=== PATIENT | male | born 1950 | race Asian ===

== ENCOUNTER 2017-06-17 22:46 | Emergency (ER) | payer BC ==
[~2017-06-17] VITALS: Ht 175.3 cm; Wt 79.4 kg
[~2017-06-17 22:46] MED LIST: TAMS0.4C PO
[2017-06-17] MEDS ORDERED: ASA LOW STR81 MG OR (23:00)
[2017-06-18 00:01] LABS: PLATELET COUNT 181 K/uL (142-355)
[2017-06-18 00:10] LABS: POTASSIUM 3.1 mmol/L (3.6-5.2); SODIUM 140 mmol/L (136-145)
[2017-06-18 01:09] VITALS: BP 169/75; TEMP 97.8
== END 2017-06-18 01:10 | disposition home or self-care (01) ==
LOC: ED 22:46
PROVIDERS: Specialist
PROC: 0T9B70Z Drainage of Bladder with Drainage Device, Via Natural or Artificial Opening (ICD-10-PCS; principal; 2017-06-17)
DX: N32.89 Other specified disorders of bladder (principal); R33.9 Retention of urine, unspecified
CPT/HCPCS: 36415; 51702; 74022; 80048; 82150; 83690; 85027; 99283

== ENCOUNTER 2019-03-13 05:09 | Emergency (ER) | payer OTHER ==
[~2019-03-13] VITALS: Ht 175.3 cm; Wt 77.6 kg
[~2019-03-13 05:09] MED LIST changes: +ASA LOW STR81 MG OR
[2019-03-13 05:21] VITALS: TEMP 97.5
[2019-03-13 07:07] VITALS: BP 154/73
== END 2019-03-13 07:07 | disposition home or self-care (01) ==
LOC: ED 05:09
DX: N40.1 Benign prostatic hyperplasia with lower urinary tract symptoms (principal); R10.30 Lower abdominal pain, unspecified; R33.8 Other retention of urine
CPT/HCPCS: 51702; 81000; 99283; 99284

== ENCOUNTER 2019-03-25 03:30 | Emergency (ER) | payer OTHER ==
[~2019-03-25] VITALS: Ht 175.3 cm; Wt 77.6 kg
[2019-03-25 05:06] VITALS: BP 178/88
== END 2019-03-25 05:10 | disposition home or self-care (01) ==
LOC: ED 03:30 → EDBD 03:30 → ED 05:10
PROC: 0T9B70Z Drainage of Bladder with Drainage Device, Via Natural or Artificial Opening (ICD-10-PCS; principal; 2019-03-25)
DX: N40.1 Benign prostatic hyperplasia with lower urinary tract symptoms (principal); N13.8 Other obstructive and reflux uropathy
CPT/HCPCS: 51702; 99282

== ENCOUNTER 2020-04-17 02:10 | Emergency (ER) | payer OTHER ==
[~2020-04-17] VITALS: Ht 175.3 cm; Wt 74.8 kg
[2020-04-17 03:30] VITALS: BP 161/71; TEMP 98.7
== END 2020-04-17 03:30 | disposition home or self-care (01) ==
LOC: ED 02:10
PROC: 0T9B70Z Drainage of Bladder with Drainage Device, Via Natural or Artificial Opening (ICD-10-PCS; principal; 2020-04-17)
DX: N40.1 Benign prostatic hyperplasia with lower urinary tract symptoms (principal); R33.8 Other retention of urine
CPT/HCPCS: 51702; 81000; 99283

== ENCOUNTER 2020-09-18 08:43 | Emergency (ER) | payer OTHER ==
[~2020-09-18] VITALS: Ht 175.3 cm; Wt 74.8 kg
[2020-09-18 08:50] VITALS: TEMP 97.8
[2020-09-18 09:33] LABS: PLATELET COUNT 186 K/uL (142-355)
[2020-09-18 09:52] LABS: POTASSIUM 4.1 mmol/L (3.6-5.2)
[2020-09-18 10:47] VITALS: BP 156/78
== END 2020-09-18 10:49 | disposition home or self-care (01) ==
LOC: ED 08:43
PROVIDERS: Family Medicine
PROC: 0T9B70Z Drainage of Bladder with Drainage Device, Via Natural or Artificial Opening (ICD-10-PCS; principal; 2020-09-18)
DX: N40.1 Benign prostatic hyperplasia with lower urinary tract symptoms (principal); R33.8 Other retention of urine
CPT/HCPCS: 51702; 80053; 81000; 85027; 99282; 99283

== ENCOUNTER 2020-09-18 23:28 | Emergency (ER) | payer OTHER ==
[~2020-09-18] VITALS: Ht 175.3 cm; Wt 81.6 kg
[2020-09-19 01:26] VITALS: BP 161/85; TEMP 98
== END 2020-09-19 01:27 | disposition home or self-care (01) ==
LOC: ED 23:28
PROC: 0T9B70Z Drainage of Bladder with Drainage Device, Via Natural or Artificial Opening (ICD-10-PCS; principal; 2020-09-18)
DX: N40.1 Benign prostatic hyperplasia with lower urinary tract symptoms (principal); R33.8 Other retention of urine
CPT/HCPCS: 51702; 99282

== ENCOUNTER 2020-12-16 03:47 | Emergency (ER) | payer OTHER ==
[~2020-12-16] VITALS: Ht 175.3 cm; Wt 81.6 kg
[2020-12-16 07:05] VITALS: BP 155/80; TEMP 98.4
== END 2020-12-16 07:05 | disposition home or self-care (01) ==
LOC: ED 03:47
PROC: 0T9B70Z Drainage of Bladder with Drainage Device, Via Natural or Artificial Opening (ICD-10-PCS; principal; 2020-12-16)
DX: R33.8 Other retention of urine (principal); N40.1 Benign prostatic hyperplasia with lower urinary tract symptoms
CPT/HCPCS: 51702; 81000; 99283

== ENCOUNTER 2021-02-10 06:45 | Emergency (ER) | payer OTHER | END 2021-02-10 08:15 | disposition home or self-care (01) | LOC: ED 06:45 | PROC: 0T9B70Z Drainage of Bladder with Drainage Device, Via Natural or Artificial Opening (ICD-10-PCS; principal; 2021-02-10) | DX: N40.1 Benign prostatic hyperplasia with lower urinary tract symptoms (principal); R33.8 Other retention of urine; I10 Essential (primary) hypertension | CPT/HCPCS: 51702; 81000; 99283 ==

== ENCOUNTER 2021-02-23 05:44 | Emergency (ER) | payer OTHER ==
[~2021-02-23] VITALS: Ht 175.3 cm; Wt 81.6 kg
[2021-02-23 05:50] VITALS: TEMP 98.2
[2021-02-23 07:35] VITALS: BP 164/72
== END 2021-02-23 07:35 | disposition home or self-care (01) ==
LOC: ED 05:44
PROC: 0T9B70Z Drainage of Bladder with Drainage Device, Via Natural or Artificial Opening (ICD-10-PCS; principal; 2021-02-23)
DX: N40.1 Benign prostatic hyperplasia with lower urinary tract symptoms (principal); R33.8 Other retention of urine
CPT/HCPCS: 51702; 81000; 99282

== ENCOUNTER 2023-01-05 03:44 | Emergency (ER) | payer OTHER ==
[~2023-01-05] VITALS: Ht 175.3 cm; Wt 84.4 kg
[2023-01-05 04:00] VITALS: BP 163/60; TEMP 97.2
[2023-01-05 04:33] LABS: PLATELET COUNT 167 K/uL (142-355)
== END 2023-01-05 05:05 | disposition home or self-care (01) ==
LOC: ED 03:44
PROVIDERS: Emergency Medicine
DX: R33.9 Retention of urine, unspecified (principal); Z87.891 Personal history of nicotine dependence; I50.9 Heart failure, unspecified; Z79.82 Long term (current) use of aspirin; N40.0 Benign prostatic hyperplasia without lower urinary tract symptoms
CPT/HCPCS: 36415; 51702; 80053; 80307; 81000; 85027; 99283